=== PATIENT | male | born 1980 | race African-American/Black ===

== ENCOUNTER 2016-12-28 20:28 | Emergency (ER) | payer OTHER ==
[~2016-12-28] VITALS: Ht 177.8 cm; Wt 103.3 kg
[~2016-12-28 20:28] MED LIST: CLR10 PO; SNG10 PO; SYMIN/8045 INH
[2016-12-28 20:31] VITALS: Ht 177.8 cm; Wt 103.3 kg
[2016-12-28] MEDS ORDERED: ONDANSETRON INJ 2 MG/ML 2 ML VIAL IV STA (20:51)
[2016-12-28] MEDS ORDERED: ACETAMINOPHEN 500 MG TAB PO STA (20:51)
[2016-12-28] MEDS ORDERED: SODIUM CHLORIDE 0.9% 1000ML 1,000 ML IV STA (20:51)
[2016-12-28 21:04] LABS: BASO % 0.4 %; BASO ABS # 0.04 K/uL (0-0.2); COMPLETE YES; EOS % 0.3 %; HEMATOCRIT 44.2 % (42-52); IG% 0.4 %; LYMPH ABS # 0.93 K/uL (1.2-3.4); MEAN CELL VOLUME 88.2 fL (80-100); MEAN CORPUSCULAR HEMOGLOBIN 30.1 pg (25-34); MEAN CORPUSCULAR HGB CONC 34.2 g/dl (32-36); MEAN PLATELET VOLUME 10.4 fL (7.4-10.4); MONO % 12.5 %; NEUT % 76.4 %; PLATELET COUNT 201 K/uL (130-400); RED BLOOD COUNT 5.01 M/uL (4.7-6.1); WHITE BLOOD COUNT 9.34 K/uL (4.8-10.8)
[2016-12-28] MEDS ORDERED: ALBUT/IPRATROP 3MG/0.5MG NEB 3 ML VIAL INH STA (21:15)
[2016-12-28 21:20] LABS: BUN/CREATININE RATIO 8.9 (10-20); CALCIUM 9.1 mg/dl (8.5-10.1); CREATININE 1.3 mg/dl (0.60-1.40); POTASSIUM 4.2 mmol/L (3.5-5.1)
[2016-12-28 21:23] LABS: ALB/GLOB RATIO 1.2 (0.9-2)
--- NOTE | 2016-12-28 22:09 | DIAGNOSTIC IMAGING REPORT ---
CHEST 2 VIEWS ROUTINE CLINICAL HISTORY: cough/fever dyspnea COMPARISON STUDY: 10/23/2015 FINDINGS: The bones soft tissues and hemidiaphragms are normal. The cardiomediastinal silhouette is normal. The lungs are clear. The pulmonary vasculature is normal. IMPRESSION: Negative chest. Electronically signed by: Dwain Lim M.D. 12/28/2016 10:08 PM Dictated Date/Time: 12/28/2016 10:07 PM
[2016-12-28] MEDS ORDERED: OSELTAMIVIR PHOSPHATE 75 MG CAP PO STA (22:10)
[2016-12-28] MEDS ORDERED: SYMIN160 INH (22:29)
[2016-12-28] MEDS ORDERED: AZITTAB PO (22:30)
[2016-12-28] MEDS ORDERED: IBUP-103 PO (22:30)
[2016-12-28] MEDS ORDERED: TIOT1SPR INH (22:30)
[2016-12-28] MEDS ORDERED: PHEN-601 PO (22:31)
[2016-12-28] MEDS ORDERED: OSEL75CA12 PO (22:37)
[2016-12-28] MEDS ORDERED: PRED50TA PO (22:37)
--- NOTE | 2016-12-28 22:38 | EMERGENCY ROOM VISIT NOTE ---
History First contact with patient: 20:56 Chief Complaint: FLU LIKE SX Stated Complaint: FLU History of Present Illness The patient is a 36 year old male who presents to the Emergency Department by private vehicle for evaluation of his fever, cough, and sore throat. The patient reports that last evening he developed a fever. Throughout the day he has been taking ibuprofen with minimal relief of his fever symptoms. He was started on a Z-Yannick today for ongoing cough. The patient does have a history of asthma and reports that he has had troubles with wheezing.. The patient reports feeling nauseated this evening resulting in vomiting episodes. He reports diffuse body aches and pains. The patient rates his current discomfort as a 4/10. He denies any headaches, dizziness, lightheadedness, chest pain, palpitations, shortness breath, hemoptysis, hematemesis, hematochezia, melena, hematuria, or dysuria. The patient did receive an influenza vaccination. Review of Systems A complete 10-point Review of Systems was discussed with the patient, with pertinent positives and negatives listed in the History of Present Illness. All remaining Review of Systems questions can be considered negative unless otherwise specified. Past Medical/Surgical History Medical Problems: (1) Bronchitis Family History Lung disease Social History Smoking Status: Never Smoker Smokeless Tobacco Use: No Alcohol Use: occasionally Drug Use: none Marital Status: Housing Status: lives with family Occupation Status: employed Current/Historical Medications Scheduled Azithromycin (Zithromax Z-Yannick), 1 PKT PO UD Budesonide/Formoterol Fumarate (Symbicort 160/4.5 Inhaler), 2 PUFFS INH BID Montelukast Sod (Montelukast Sodium), 10 MG PO DAILY Oseltamivir (Tamiflu), 75 MG PO BID Prednisone (Prednisone), 50 MG PO DAILY Tiotropium [place] Monohydrate (Spiriva Respimat), 2 PUFFS INH DAILY Scheduled PRN Ibuprofen Tab (Advil), 400-600 MG PO Q6H PRN for Pain or Fever Phenylephrine W/ Acetaminophen (Tylenol Sinus Congestion), 1 TAB PO UD PRN for Cold/Sinus Symptoms Allergies Uncoded Allergies: BANANNAS (Allergy, Unknown, lips swell,throat itchy, 09/20/14) CANTALOPE (Allergy, Unknown, lips swell,itchy throat, 09/20/14) Physical Exam Vital Signs Date Time Temp Pulse Resp B/P Pulse Ox O2 Delivery O2 Flow Rate FiO2 12/28/16 22:53 38.3 107 18 119/58 92 12/28/16 22:22 38.3 107 18 119/58 92 Room Air 12/28/16 20:31 39.3 70 20 156/109 96 Room Air Pain Rating (0-10): 4 Physical Exam VITAL SIGNS - Vital signs and nursing notes were reviewed. GENERAL - Well nourished, well developed 36-year-old male in no acute distress. Pt communicates well with provider and answers questions appropriately. SKIN - Without rash. HEAD - NC/AT with no obvious deformities. EYES - PERRL with EOMI bilaterally. Sclera without injection. Palpebral conjunctiva pink and moist. EARS - No deformities of external structures noted on gross examination bilaterally. No pain elicited with palpation of the tragus bilaterally. External auditory canals without discharge or otorrhea. Tympanic membranes pearly without retraction or bulging. No fluid or purulent material visualized behind the TM. Handle of malleus, umbo, cone of light, pars tensa/ flaccid all easily visualized. NOSE - Midline and without cyanosis. No purulent drainage noted. Nasal mucosa without mucus discharge. MOUTH/OROPHARYNX - Without perioral cyanosis. Buccal mucosa pink and moist and without leukoplakia. Tongue midline with equal elevation of palate bilaterally. No tonsillar hypertrophy, erythema, or exudates noted. Good dentition noted. NECK - Neck with FROM. Supple to palpation. No lymphadenopathy noted. No nuchal rigidity. LUNGS - Chest wall symmetric without accessory muscle use, intercostals retractions, or central cyanosis. Normal vesicular breath sounds CTA B/L. No wheezes, rales, or rhonchi appreciated. CARDIAC - RRR with S1/S2. No murmur, rubs, or gallops appreciated. ABDOMEN - Abdominal contour flat without pulsations or visible masses. BS normoactive all four quadrants. No tenderness, palpable masses, hepatosplenomegaly, or ascites noted. Medical Decision & Procedures ER Provider Diagnostic Interpretation: Radiological imaging and reports were reviewed by myself. Radiologist's Interpretation as follows: CHEST 2 VIEWS ROUTINE CLINICAL HISTORY: cough/fever dyspnea COMPARISON STUDY: 10/23/2015 FINDINGS: The bones soft tissues and hemidiaphragms are normal. The cardiomediastinal silhouette is normal. The lungs are clear. The pulmonary vasculature is normal. IMPRESSION: Negative chest. Laboratory Results 12/28/16 20:48 Red Blood Count 5.01, Mean Corpuscular Volume 88.2, Mean Corpuscular Hemoglobin 30.1, Mean Corpuscular Hemoglobin Concent 34.2, Mean Platelet Volume 10.4, Neutrophils (%) (Auto) 76.4, Lymphocytes (%) (Auto) 10.0, Monocytes (%) (Auto) 12.5, Eosinophils (%) (Auto) 0.3, Basophils (%) (Auto) 0.4, Neutrophils # (Auto ) 7.13, Lymphocytes # (Auto) 0.93, Monocytes # (Auto) 1.17, Eosinophils # (Auto ) 0.03, Basophils # (Auto) 0.04 12/28/16 20:48 Test 12/28/16 20:48 12/28/16 21:15 White Blood Count 9.34 K/uL (4.8-10.8) Red Blood Count 5.01 M/uL (4.7-6.1) Hemoglobin 15.1 g/dL (14.0-18.0) Hematocrit 44.2 % (42-52) Mean Corpuscular Volume 88.2 fL (80-100) Mean Corpuscular Hemoglobin 30.1 pg (25-34) Mean Corpuscular Hemoglobin Concent 34.2 g/dl (32-36) Platelet Count 201 K/uL (130-400) Mean Platelet Volume 10.4 fL (7.4-10.4) Neutrophils (%) (Auto) 76.4 % Lymphocytes (%) (Auto) 10.0 % Monocytes (%) (Auto) 12.5 % Eosinophils (%) (Auto) 0.3 % Basophils (%) (Auto) 0.4 % Neutrophils # (Auto) 7.13 K/uL (1.4-6.5) Lymphocytes # (Auto) 0.93 K/uL (1.2-3.4) Monocytes # (Auto) 1.17 K/uL (0.11-0.59) Eosinophils # (Auto) 0.03 K/uL (0-0.5) Basophils # (Auto) 0.04 K/uL (0-0.2) RDW Standard Deviation 39.1 fL (36.4-46.3) RDW Coefficient of Variation 12.3 % (11.5-14.5) Immature Granulocyte % (Auto) 0.4 % Immature Granulocyte # (Auto) 0.04 K/uL (0.00-0.02) Anion Gap 10.0 mmol/L (3-11) Est Creatinine Clear Calc Drug Dose 95.5 ml/min Estimated GFR () 81.9 Estimated GFR (Non- 70.7 BUN/Creatinine Ratio 8.9 (10-20) Calcium Level 9.1 mg/dl (8.5-10.1) Total Bilirubin 1.5 mg/dl (0.2-1) Aspartate Amino Transf (AST/SGOT) 31 U/L (15-37) Alanine Aminotransferase (ALT/SGPT) 34 U/L (12-78) Alkaline Phosphatase 86 U/L (45-117) Total Protein 7.4 gm/dl (6.4-8.2) Albumin 4.0 gm/dl (3.4-5.0) Globulin 3.4 gm/dl (2.5-4.0) Albumin/Globulin Ratio 1.2 (0.9-2) Influenza Type A Antigen POS for Influ A (NEG) Influenza Type B Antigen Neg for Influ B (NEG) Date/Time Source Procedure Growth Status 12/28/16 21:15 Throat Group A Streptococcus Screen - Final SPECIMEN NEGATIVE FOR GROUP A BETA ST... Complete 12/28/16 21:15 Throat Group A Streptococcus Screen (VASHTI) - Final NO BETA STREP. ISOLATED. Complete Medications Administered Medications (Trade) Dose Ordered Sig/Asa Route Start Time Stop Time Status Last Admin Dose Admin Sodium Chloride (Nss 1000ml) 1,000 ml @ 999 mls/hr Q1H1M STAT IV 12/28/16 20:51 12/28/16 21:51 DC 12/28/16 21:25 999 MLS/HR Ondansetron HCl (Zofran Inj) 4 mg NOW STAT IV 12/28/16 20:51 12/28/16 20:54 DC 12/28/16 21:26 4 MG Acetaminophen (Tylenol Tab) 1,000 mg NOW STAT PO 12/28/16 20:51 12/28/16 20:54 DC 12/28/16 21:25 1,000 MG Albuterol/ Ipratropium (Duoneb) 3 ml NOW STAT INH 12/28/16 21:15 12/28/16 21:16 DC 12/28/16 21:25 3 ML Oseltamivir Phosphate (Tamiflu Cap) 75 mg NOW STAT PO 12/28/16 22:10 12/28/16 22:12 DC 12/28/16 22:21 75 MG Prednisone (PredniSONE TAB) 60 mg NOW STAT PO 12/28/16 22:10 12/28/16 22:12 DC 12/28/16 22:21 60 MG ED Course Patient was seen and evaluate by myself. Labs were drawn, saline lock complains. Rapid strep and influenza swabs were obtained. Patient was hydrated with a 1000 mL normal saline bolus. He received 4 g a Zofran intravenously and 1 g of Tylenol orally. The patient was treated with 1 DuoNeb. Chest x-ray was obtained. Laboratory results demonstrate no acute leukocytosis, worrisome anemia, or bandemia. The patient has no significant electrolyte abnormalities. Her strep was negative. Influenza was positive. The patient was treated with Tamiflu. He was provided prednisone. The patient was educated on worrisome symptoms for return visit to the emergency department. Patient discharged home afebrile and in good condition. Medical Decision Given the patient's presentation and exam findings, I did elect to perform the above-mentioned workup. The patient presents today with fever, bodyaches, and cough. Patient's labs are essentially unremarkable. He was monitored well to antipyretics, DuoNeb, and fluids. Patient tested positive for influenza A. Given the patient's associated asthma, I did elect to provide the patient with a short course of prednisone to help with the symptoms. He has an inhaler for home which she will use over the next few days. He was provided Tamiflu as he is well within the window of treatment. The patient was educated on worrisome symptoms for return visit to the emergency department. Patient discharged home afebrile and in good condition. In the evaluation and treatment of this patient, the following differential diagnoses were considered: Meningitis, cephalitis, strep, mono, amongst others. Impression Primary Impression: Influenza A Additional Impression: Fever Departure Information Dispostion Home / Self-Care Condition GOOD Prescriptions Oseltamivir (Tamiflu) 75 Mg Cap 75 MG PO BID for 5 Days, #10 CAP Prov: Rafy Melendez PA-C 12/28/16 Prednisone (Prednisone) 50 Mg Tab 50 MG PO DAILY for 4 Days, #4 TAB Prov: Rafy Melendez PA-C 12/28/16 Referrals Rosalino Cavanaugh M.D. (PCP) Patient Instructions ED Fever Control, ED Influenza Ch, [facility] Additional Instructions You've been seen in the emergency department today for your fever, bodyaches, and cough. You have tested positive for influenza A. Please take the Tamiflu as prescribed. For pain control, you can use the following [id number] medicines (if >12 yo): - Regular strength (325mg/tab) Tylenol (acetaminophen) 2 tabs every 4-6 hours as needed. Do not exceed 12 tablets in a 24 hour period. Avoid taking more than 4 grams (4000 mg) of Tylenol per day. This includes any other sources of acetaminophen you may take on a regular basis. - Regular strength (200 mg/tab) Advil (ibuprofen) 1-2 tabs every 4-6 hours as needed. Do not exceed a dose of 3200 mg per day. Please use your albuterol inhaler 2 puffs every 4-6 hours for the next 3-4 days and then as needed for cough. Drink plenty of fluids and stay well-hydrated. Follow-up with your primary care provider from today's visit. Return for any changing or worsening symptoms. Problem Qualifiers Additional Impression: Fever Fever type: unspecified Qualified Codes: R50.9 - Fever, unspecified
[2016-12-28 22:53] VITALS: BP 119/58; PULSE 107; TEMP 38.3; O2SAT 92
== END 2016-12-28 22:54 | disposition home or self-care (01) ==
LOC: C.EDB 20:29 → C.EDC 22:54
DX: J09.X2 Influenza due to identified novel influenza A virus with other respiratory manifestations (principal); Z79.899 Other long term (current) drug therapy; Z91.018 Allergy to other foods

== ENCOUNTER → 2017-02-14 | Outpatient (CLI) | payer OTHER ==
[~2017-02-14] MED LIST changes: +AZITTAB PO; -CLR10 PO; +IBUP-103 PO; +PHEN-601 PO; -SYMIN/8045 INH; +SYMIN160 INH; +TIOT1SPR INH
--- NOTE | 2017-02-14 17:14 | DIAGNOSTIC IMAGING REPORT ---
LUMBAR SPINE MRI HISTORY: Pain. Radiculopathy. RADICULOPATHY LUMBOSACRAL REGION TECHNIQUE: Multiplanar multisequence MRI of the lumbar spine was performed without the use of contrast. COMPARISON: None. FINDINGS: For the purpose of the report the L5-S1 disc space will be located on axial image 27 of 30. Mild disc desiccation throughout. Moderate degenerative disc change L5-S1. L1-L2: No significant central canal or neural foraminal narrowing. L2-L3: No significant central canal or neural foraminal narrowing. L3-L4: Minimal broad-based disc bulge. Minimal narrowing of the neuroforamina bilaterally L4-L5: No significant central canal or neural foraminal narrowing. L5-S1: Broad-based left central bulging disc. Minimal impact anterior thecal sac. Mild/moderate narrowing left and to lesser extent right neural foramina. IMPRESSION: 1. Broad-based disc bulge L5-S1. 2. Minimal lateral disc bulge L3-L4. 3. Degenerative intervertebral disc change considered moderate L5-S1 Electronically signed by: Dwain Lim M.D. 02/14/2017 5:12 PM Dictated Date/Time: 02/14/2017 5:10 PM
== END | disposition home or self-care (01) ==
LOC: C.MRI 15:52
PROVIDERS: ATTEND Physician Assistant
DX: M47.27 Other spondylosis with radiculopathy, lumbosacral region (principal)